=== PATIENT | female | born 1980 | race Hispanic/Latino ===

== ENCOUNTER → 2024-06-27 | Day surgery (SDC) | payer OTHER ==
[~2024-06-27] MED LIST: GLYCOPYRROLATE INJ 0.2 MG/ML VIAL ONE; LIDOCAINE HCL 2% LOCAL INJ 5 ML SDV VIAL INJ ONE; METOCLOPRAMIDE HCL 10 MG/2ML VIAL ONE; PHENYLEPHRINE HCL 1% 10 MG/ML VIAL ONE; PROBIOTIC PO; PROPOFOL IV EMULSION 10 MG/ML 20 ML VIAL ONE
[2024-06-27] MEDS: LACTATED RINGER'S 1,000 ML ONE (09:51)
[2024-06-27 11:01] VITALS: BP 122/74; PULSE 86; RESP 18; O2SAT 98
== END | disposition home or self-care (01) ==
LOC: OR 09:20
PROVIDERS: ATTEND Internal Medicine Gastroenterology
DX: K29.50 Unspecified chronic gastritis without bleeding (principal); K31.7 Polyp of stomach and duodenum; K22.10 Ulcer of esophagus without bleeding; K21.9 Gastro-esophageal reflux disease without esophagitis; E66.01 Morbid (severe) obesity due to excess calories
CPT/HCPCS: 43239; 43251; 81025; J2003; J2371; J2470; J2704; J2765; J7121